=== PATIENT | male | born 1975 | race Caucasian/White ===

== ENCOUNTER 2019-01-03 19:19 | Emergency (ER) | payer OTHER ==
[2019-01-03] MEDS ORDERED: DIAZEPAM 5 MG/ML, 10ML VIAL IM ONE (19:46)
[2019-01-03] MEDS ORDERED: HYDROmorphone 1 MG/ML, 1ML AMP ONE ×2 (19:54→20:14)
[2019-01-03] MEDS ORDERED: SODIUM CHLORIDE FLUSH 10ML SYR IVF ONE (20:00)
[2019-01-03] MEDS ORDERED: HYDROmorphone 1 MG/ML, 1ML VIAL IVPush PRN (20:00)
[2019-01-03] MEDS: HYDROmorphone 1 MG/ML, 1ML AMP IVPush PRN ×2 (20:12→20:50)
--- NOTE | 2019-01-03 20:22 | NUR ---
Pt medicated for 10/10 pain per EMAR, 5 rights observed.
--- NOTE | 2019-01-03 20:38 | NUR ---
Pt reports decreased level of pain. Req second dose of dilaudid prior to ct scan
--- NOTE | 2019-01-03 20:59 | NUR ---
Pt medicated prior to going to CT. Transported on o2 nc 3l , awake, alert upon transport.
[2019-01-03] MEDS ORDERED: DIAZEPAM 5 MG/ML, 10ML VIAL IV ONE (21:12)
--- NOTE | 2019-01-03 21:43 | NUR ---
Pt reports 5/10 pain, MD at bedside for eval
[2019-01-03] MEDS ORDERED: METHOCARBAMOL 1,000 MG in DEXTROSE 5% 100 ML IV ONE (22:00)
--- NOTE | 2019-01-03 22:03 | NUR ---
Robaxin infusing per emar, pt states "so nothing for the pain" pt educated on med orders and reason for robaxin. Pt agrees to poc (admit), pt has [employer], throughput and registration notified.
--- NOTE | 2019-01-03 22:08 | NUR ---
Patient to be transferred to [facility] as patient has [employer]. Spoke with Pat at [facility] [place] and he states Dr. Jackson the [facility] hospitalist will call and accept patient as a direct admit.
--- NOTE | 2019-01-03 22:27 | NUR ---
Doc to Doc consult complete. Patient accepted by Dr. Jackson. Awaiting Bed at [facility] at this time.
[2019-01-03] MEDS ORDERED: ZIPRASIDONE 20 MG INJ IM ONE ×2 (22:28→22:30)
--- NOTE | 2019-01-03 22:31 | NUR ---
Pt requesting more pain meds, PA notified.
--- NOTE | 2019-01-03 22:34 | NUR ---
Patient in [facility] will call at this time. Will call [facility] for transport after patient is given bed at [facility].
[2019-01-03 22:48] VITALS: BP 129/69
--- NOTE | 2019-01-03 22:48 | NUR ---
Pt reports decreasing pain. Lights dimmed, given blanket for increased comfort. Awaiting [facility] eta
--- NOTE | 2019-01-03 22:49 | NUR ---
Call from [facility] and patient now not able to go to [facility] as they do not have Neurology. [facility] to call back if they have an avialable bed at [facility].
--- NOTE | 2019-01-03 23:16 | NUR ---
Pt in room sleeping/snoring. Remains on cont pulse ox monitoring.
--- NOTE | 2019-01-03 23:26 | NUR ---
Spoke with PRABHA RN at [facility] and patient now to be accepted at [facility] by Dr. Mata and will be going to [facility]. MARBIN updated about patient now going to [facility] and they will be here to orange picker patient in about 30 min.
--- NOTE | 2019-01-03 23:35 | NUR ---
Report to Jordyn STARKEY.
== END 2019-01-04 00:01 | disposition short-term general hospital (02) ==
LOC: ED 21:58
DX: S39.012A Strain of muscle, fascia and tendon of lower back, initial encounter (principal); M51.26 Other intervertebral disc displacement, lumbar region; M51.36 Other intervertebral disc degeneration, lumbar region; X58.XXXA Exposure to other specified factors, initial encounter; Y93.89 Activity, other specified; Y92.89 Other specified places as the place of occurrence of the external cause; Y99.8 Other external cause status
CPT/HCPCS: 72131; 96365; 96372; 96375; 96376; 99285; J1170; J2800; J3360; J3486